=== PATIENT | male | born 1990 | race Caucasian/White ===

== ENCOUNTER 2016-09-24 02:23 | Emergency (ER) | payer SELFPAY ==
[~2016-09-24] VITALS: Ht 180.3 cm; Wt 78.0 kg
[2016-09-24 02:28] VITALS: BP 152/78; PULSE 62; RESP 14; TEMP 98.6; O2SAT 98
--- NOTE | 2016-09-24 03:40 | PD ---
HPI Chief Complaint: Eye Problems/Injury Time Seen by Provider: 03:32 Travel History International Travel<30 days: No Contact w/Intl Traveler<30days: No Traveled to known affect area: No History of Present Illness HPI 26-year-old male presents for evaluation of bilateral eye redness, tearing, matting and irritation. Symptoms started 3 days ago. Symptoms are worse in the left eye with a foreign body sensation in the left eye. He notes that [place] is a lot of debris involved in this endeavor. He is concerned that something may be in both eyes. He denies any blurred vision. He does not wear contacts. No cough or congestion. No other complaints. PFSH Social History Tobacco Use: Yes Allergies-Medications (Allergen,Severity, Reaction): Coded Allergies: No Known Allergies (Unverified , 09/24/16) Review of Systems General / Constitutional: No: Fever Eyes: Positive: Redness, Foreign Body Sensation, Tearing, No: Blurred Vision, Photophobia HENT: No: Congestion Physical Exam Narrative GENERAL: Well-developed well-nourished male in no acute distress SKIN: Warm and dry. HEAD: Atraumatic. Normocephalic. EYES: Pupils equal and round reactive to light extraocular muscles are intact. There is bilateral conjunctival injection. There is no proptosis, no chemosis, no pain with extraocular range of motion. The upper eyelid was everted and there is no evidence of retained foreign body. Wood's lamp reveals no acute abnormalities. ENT: No nasal bleeding or discharge. Mucous membranes pink and moist. NECK: Trachea midline. No JVD. Data Data Last Documented VS Vital Signs Date Time Temp Pulse Resp B/P Pulse Ox O2 Delivery O2 Flow Rate FiO2 09/24/16 02:28 98.6 62 14 152/78 98 Room Air Orders Proparacaine 0.5% Opth Soln (Alcaine 0.5 (09/24/16 03:45) MDM Medical Decision Making Medical Screen Exam Complete: Yes Emergency Medical Condition: Yes Medical Record Reviewed: Yes Differential Diagnosis Conjunctivitisbacterial versus viral versus chemical versus allergic versus foreign body versus corneal abrasion versus iritis versus endophthalmitis versus scleritis Narrative Course 26-year-old male presents with 3 days of bilateral eye irritation, redness, matting and tearing. He has a foreign body sensation in the left eye as well. He has been working at the [employer] over the past several days. Examination reveals bilateral conjunctival injection, no evidence of foreign body. Dockery lamp is negative. The patient is being discharged with Polytrim ophthalmic solution. Recommended using protective eyewear when working at the [employer]. Diagnosis Primary Impression: Conjunctivitis Qualified Code: H10.33 - Acute conjunctivitis of both eyes, unspecified acute conjunctivitis type Additional Instructions: Medication as prescribed. Wear protective eye wear while working at the [employer]. Follow-up with primary care physician as needed. Return for any acutely new or worsening symptoms. Med/Other Pt SpecificInfo: Prescription(s) given Scripts Polymyxin B-Trimethoprim Opth Drops (Polytrim Opth Drops)10,000-0.1 Unit/Ml-% Soln1 Drop EACH EYE Q6HR 7 Days Ref 0 Prov:Thiago Li MD 09/24/16 Disposition: 01 DISCHARGE HOME Condition: Stable Edwardo Carter Sep 24, 2016 03:40
[2016-09-24] MEDS ORDERED: PROPARACAINE HCL 0.5% OPHT SOLN 15 ML BTL EACH EYE ONE (03:45)
[2016-09-24] MEDS ORDERED: POLY10O EACH EYE (03:51)
== END 2016-09-24 04:16 | disposition home or self-care (01) ==
LOC: NEPK 02:23
DX: H10.33 Unspecified acute conjunctivitis, bilateral (principal); Z72.0 Tobacco use
CPT/HCPCS: 99282